=== PATIENT | male | born 1980 ===

== ENCOUNTER 2017-09-20 07:45 | Day surgery (SDC) | payer OTHER ==
[~2017-09-20 07:45] MED LIST: Buffered Lidocaine 0.9% SYRIN* 5 ML/SYR SYRINGE INTRADERM ONE; Bupivacaine 0.25% SDV* 30 ML ONE; Dexamethasone IV* 4 MG/ML 1 ML (4 MG) IV SLOW PU ONE; Dexamethasone IV* 4 MG/ML 1 ML (4 MG) ONE; Famotidine IV* 10 MG/ML 2 ML (20 mg) IV ONE; Famotidine IV* 10 MG/ML 2 ML (20 mg) ONE
[2017-09-20] MEDS ORDERED: ceFAZolin 2 GM PREMIX (*) 2 GM/50 ML BAG IVPB ONE (07:57)
[2017-09-20] MEDS ORDERED: Midazolam* 1 MG/ML 5 ML VIAL (5 MG) ONE (08:45)
[2017-09-20] MEDS ORDERED: fentaNYL* 50 MCG/ML 2 ML VIAL (100 MCG VIAL) ONE ×4 (08:45→11:37)
[2017-09-20] MEDS ORDERED: Lidocaine 2% PF * 5 ML VIAL ONE (08:45)
[2017-09-20] MEDS ORDERED: Propofol* 10 MG/ML 20 ML BTL IV PUSH ONE (08:45)
[2017-09-20] MEDS ORDERED: oxyCODONE/Acetamin 5/325 MG* TAB PO PRN (08:54)
[2017-09-20] MEDS ORDERED: PROCHLORPERAZINE INJ 5 MG/ML 2 ML VIAL IV PRN (08:54)
[2017-09-20] MEDS ORDERED: HYDROcodone/ACETAMIN 5-325 MG* 1 TAB PO PRN (08:54)
[2017-09-20] MEDS ORDERED: fentaNYL* 50 MCG/ML 2 ML VIAL (100 MCG VIAL) IV PRN (08:54)
[2017-09-20] MEDS ORDERED: DiMENhydriNATE IV* 50 MG/ML VIAL IV PUSH PRN (08:54)
[2017-09-20] MEDS ORDERED: Naloxone* 0.4 MG/ML 1 ML VIAL IV PRN (08:54)
[2017-09-20] MEDS ORDERED: Ketorolac INJ* 30 MG/ML 1 ML VIAL ONE (09:35)
[2017-09-20] MEDS ORDERED: Ondansetron INJ* 2 MG/ML VIAL ONE (11:43)
[2017-09-20] MEDS ORDERED: HYDROcodone/ACETAMIN 5-325 MG* 1 TAB ONE (13:28)
[2017-09-20 13:50] VITALS: BP 106/62
--- NOTE | 2017-09-21 09:32 | OP ---
DATE OF OPERATION: 09/20/17 - [facility] DATE OF : 84 SURGEON: Isaak Mckeon MD ENTRY LEVEL ACCOUNTING CLERK: KYLE Neri. An assistant media planner was needed for the procedure to aid in positioning of the arm and retraction. ANESTHESIOLOGIST: Dr. Orellana. ANESTHESIA: General. PRE-OP DIAGNOSIS: Right 2 to 3 month old ring finger proximal interphalangeal joint dorsal fracture dislocation with malunion with very stiff and angularly deformed joint. POST-OP DIAGNOSIS: Right 2 to 3 month old ring finger proximal interphalangeal joint dorsal fracture dislocation with malunion with very stiff and angularly deformed joint. OPERATIVE PROCEDURE: Repair of malunion with right ring finger dorsal proximal interphalangeal joint fracture dislocation repair with laquita hamate arthroplasty. INDICATIONS: Isidro is 36 years old. He fractured the finger and had a stiff and displaced PIP joint fracture dislocation. Unfortunately it was treated closed and went on to have angular deformity and stiffness. I talked to him about his treatment options. I thought we have to try given his age and his need to perform heavy labor that we try giving something more stable than silicone implant and try to rebuilt the joint with his own bone and give him a stable finger. We talked about the risks and benefits including the risk of donor site morbidity including a risk of a very stiff finger and risk for subsequent need for fusion or other form of orthoplasty. He understands all of this and he wishes to proceed. He understands that laquita hamate arthroplasties for chronic fracture dislocations do not do as well as when down for an acute fracture dislocation. ESTIMATED BLOOD LOSS: 2 mL. COMPLICATIONS: There was a little bit more resection of the laquita articular surface than I desired when harvesting the graft and so this was repaired with couple of 1.3 mm screws and some autogenous distal radius bone graft. FINAL DIAGNOSES: As expected severe impaction of the volar ulnar articular surface. The dorsal articular surface was well maintained. DESCRIPTION OF PROCEDURE: Isidro was seen in the preoperative holding area. The correct side, site and procedure were identified. We came back to the operating room where the arm was prepped and draped in the usual fashion. A time-out was performed. I began by exsanguinating the arm with the Esmarch and the tourniquet was insufflated to 250 mmHg. I made a Mercy type incision centered over the PIP joint of the right ring finger. Dissection was carried down the neurovascular bundle was identified on the ulnar side and protected as the full thickness flap was raised right off of the tendon sheath taking great care not to injure the pulleys. The Bueno's ligaments were released bilaterally to allow the neurovascular bundles on both sides of the digits to fall away when I subsequently shucked and opened the joint. Once the neurovascular bundles were mobilized, I went ahead and released the volar plate that had scarred down distally and along the radial and ulnar margin releasing the accessory collateral ligaments. I released a little bit more of the collateral ligaments up their insertion on the proximal phalanx. The joint would still not shuck and open due to the chronicity of this. I released more of the collateral ligaments and finally the joint would shuck and open. Great care was taken not to fracture the dorsal cortex. I had released the A3 wayne ulnarly and let this retract as a flap radially. The tendons were brought ulnarly with a vessel loop as I shucked and open up the joint. With the joint dissection done. I went ahead and marked out my cuts on the volar base of the middle phalanx. After the cut was made, it was 11 mm wide by 4 mm deep by 6 mm long. The finger was reduced and I turned my attention to harvesting the graft. I made a 2 to 3 mm transverse incision centered over the 4th and 5th CMC joints , dissection was carried down bluntly and subperiosteal and capsular flaps were released exposing the dorsal of the hamate and the 4th and 5th CMC joints. I have brought in my ruler and I marked out with a marking pen my osteotomy taking care to preserve couple of millimeters on the radial side than the ulnar side of the rim of the hamate. I then used my sagittal saw to make my osteotomy on the outside edges of my lines. I used a sagittal saw to shave down a portion of the dorsal cortex of the hamate to allow my curved osteotome to come in. I brought in my 0.25 inch curved osteotome and completed my osteotomy out the distal articular surface with a freer in place to protect the articular surface of the 4th and 5th bases of the metacarpals. When I performed the osteotomy it took more volar articular surface than I wanted. I took the piece out. I tested the stability of the CMC joint. It seemed stable. However, I thought it would be better to put a portion of the articular surface maybe 4 or 5 mm back and so I took my sagittal saw and I cut my graft to the size that I wanted. I then took the remaining piece of the articular surface and reduced it. At this point, I went proximally and harvested some distal radius autogenous bone graft in standard fashion by making a 2 cm incision proximal to the Jeanine's tubercle raising subperiosteal flaps, opening the dorsal cortex with an osteotome and then using the curette to harvest the cancellous graft. This was then packed to wrap up the articular piece of the hamate until it was supported in the well reduced position. Additionally, I used a couple of the cortical pieces as a structural graft. Once I had everything nicely reduced, it was quite stable I decided to augment this with a couple of 1.3 mm screws. So I had enough bone to place two 1.3 mm screws subchondrally in compression type fashion securing that piece of articular surface back to the reduced position. Ultimately, at this point that piece was very stable, the 4th and 5th CMC joint where very stable. I turned my attention back to the finger and decided to check the stability again at the end of the case after we had manipulated the wrist some. We turned our attention back to the finger. The tendons were retracted ulnarly and the joint was shuck and opened. I took my graft, did some final contouring with the sagittal saw and then pinned the graft in place with a 0.6 mm K-wire of the Synthes variable angle handset. All of the screws were also at the Synthes variable angle handset. I then with the graft piece in place restoring the normal concavity of the base of the middle phalanx and with the central ridge and alignment with that of the dorsal middle phalanx base, I went ahead and drilled and placed two 1.3 mm screws on either side of my wire in standard fashion. This provided excellent compression and stability and normal concavity of the PIP of the middle phalanx base was restored. I was very pleased with the contour of the middle phalanx base. I irrigated everything out. I went ahead and reduced the joint and got some fluoroscopic imaging of both finger and the hamate and everything looked good. I went ahead and repaired the volar plate with 4-0 Ethibond sutures advancing it back distally opposing it to the base of the laquita hamate graft. The A3 wayne was pulled back over and the corners were tacked down to a couple of [id number] 5-0 Prolene sutures taken care not to injure the nerve. The joint was sitting very nicely reduced, had an excellent smooth gliding motion. It was out of ulnar deviation that it had been in preoperatively. The rotation was nice and everything was looking good. I checked my hamate donor site. The 4th and 5th CMC joints were very stable and nothing had shifted or changed, everything was looking very good. So, I irrigated that out and the deeper periosteal and capsular layer was closed with some 5-0 Prolene suture. The skin was closed with 4-0 nylon suture. The distal radius donor site was closed with 4-0 nylon suture. The skin on the finger was closed with 4-0 nylon suture. The tourniquet was deflated. The hand pinked up immediately. All of the wounds were infiltrated with 0.25% Marcaine and a digital block was performed. Wounds were dressed with Xeroform, 4 x 4s, sterile Webril, and then an ulnar gutter wrist splint was placed grabbing the middle, ring, and small fingers with the wrist in 30 degrees of extension, MP joints in full flexion and the IP joints fully extended. The finger pinked up immediately after the tourniquet being deflated. The patient was woken up and taken to the recovery room in stable condition. [id number]/CPS #: [id number] JOSE
--- NOTE | 2017-09-21 09:59 | RAD ---
INDICATION: Fourth finger proximal interphalangeal joint and hamate surgery RIGHT hand. COMPARISON: No relevant prior exams available on the [facility] P[facility] for comparison. TECHNIQUE: 18 seconds fluoroscopy. FINDINGS: Spot images document fixation screws at the hamate and base of the fourth proximal phalanx. At the fourth proximal phalanx the screws bridge an osteochondral graft. IMPRESSION: Procedural fluoroscopy. CPT II Codes: [id number]
== END 2017-09-20 14:06 | disposition home or self-care (01) ==
LOC: OREAST 07:45
PROVIDERS: ATTEND Orthopaedic Surgery Hand Surgery
DX: S62.644 Nondisplaced fracture of proximal phalanx of right ring finger (principal); M96.89 Other intraoperative and postprocedural complications and disorders of the musculoskeletal system; Y65.8 Other specified misadventures during surgical and medical care; Z87.891 Personal history of nicotine dependence
CPT/HCPCS: 76000; C1713; C1776; J0690; J1100; J1885; J2250; J2405; J2704; J3010